=== PATIENT | male | born 1995 | race Caucasian/White ===

== ENCOUNTER → 2020-05-29 15:37 | Outpatient (BNVA) | payer SELFPAY | PROVIDERS: Family Provider Family Medicine; PCP Family Medicine; Visit Provider Family Medicine | DX: F90.9 Attention-deficit hyperactivity disorder, unspecified type (principal); F41.9 Anxiety disorder, unspecified; F95.2 Tourette's disorder; Z85.6 Personal history of leukemia | CPT/HCPCS: 85025 ==

== ENCOUNTER → 2022-02-18 09:32 | Outpatient (BNVA) | payer SELFPAY | PROVIDERS: Family Provider Family Medicine; PCP Family Medicine; Visit Provider Family Medicine | DX: Z13.6 Encounter for screening for cardiovascular disorders (principal); Z51.81 Encounter for therapeutic drug level monitoring; Z13.1 Encounter for screening for diabetes mellitus; Z85.6 Personal history of leukemia | CPT/HCPCS: 80053; 80061; 85025 ==